=== PATIENT | male | born 1950 | race Caucasian/White ===

== ENCOUNTER → 2017-04-24 13:00 | Outpatient (CLI) | payer MEDICARE, MEDICAID, SELFPAY ==
--- NOTE | 2017-04-24 13:05 | RAD_ITS ---
STUDY: X-RAY - LUMBAR SPINE REASON FOR EXAM: Male, 66 years old. Back pain for years TECHNIQUE: 3 view(s) of the lumbar spine were obtained. COMPARISON: None FINDINGS: Normal lumbar lordosis. There is no substantial scoliosis. There is a normal alignment of the vertebrae. Normal vertebral bodies and endplates. Normal disc space heights. Slight anterior wedging at T11. The soft tissue structures are unremarkable. IMPRESSION: Mild anterior wedge fracture T11, age indeterminate. Otherwise Normal x-ray examination of the lumbar spine. Electronically Signed: Duglas Gonzalez MD at 23:58 EST , Service support , RAD/Lumbar Spine 2 or 3 Views
--- NOTE | 2017-04-24 13:05 | RAD_ITS ---
STUDY: X-RAY - THORACIC SPINE REASON FOR EXAM: Male, 66 years old. Back pain for years TECHNIQUE: 3 view(s) of the thoracic spine were obtained. COMPARISON: None. FINDINGS: Normal kyphosis of the thoracic spine. There is no substantial scoliosis. Normal thoracic vertebrae and endplates. Normal disc space heights. Slight anterior wedging at T11 and T12. Moderate spondylosis. The soft tissue structures are unremarkable. RAD/Thoracic Spine 3 Views IMPRESSION: Mild anterior wedging at T11 and T12, age indeterminate. Electronically Signed: Duglas Gonzalez MD at 23:59 EST , Service support ,
== END ==
PROVIDERS: Family Provider Family Medicine; PCP Family Medicine; Visit Provider Anesthesiology Pain Medicine
DX: M48.54XA Collapsed vertebra, not elsewhere classified, thoracic region, initial encounter for fracture (principal); M47.894 Other spondylosis, thoracic region; M54.5 Low back pain
CPT/HCPCS: 72072; 72100

== ENCOUNTER → 2017-07-30 11:00 | Outpatient (CLI) | payer MEDICARE, MEDICAID, SELFPAY ==
[2017-07-30 12:09] LABS: Amphetamine Urine VISTA NEGATIVE (<1000 ng/mL); Barbiturate Urine VISTA NEGATIVE (< 200 ng/mL); Benzodiazepine Urine VISTA NEGATIVE (< 200 ng/mL); Cocaine Urine VISTA NEGATIVE (< 300 ng/mL); Ecstacy Urine VISTA NEGATIVE (< 500 ng/mL); Methadone Urine VISTA NEGATIVE (< 300 ng/mL); PCP Urine VISTA NEGATIVE (< 25 ng/mL); THC Urine VISTA NEGATIVE (< 50 ng/mL); Vista UDS pH Range 5
== END ==
PROVIDERS: Family Provider Family Medicine; PCP Family Medicine; Visit Provider Anesthesiology Pain Medicine
DX: F11.20 Opioid dependence, uncomplicated (principal)
CPT/HCPCS: 80307